=== PATIENT | female | born 2000 | race African-American/Black ===

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

== ENCOUNTER 2018-07-17 21:18 | Emergency (ER) | payer MEDICAID ==
[~2018-07-17] VITALS: Ht 165.1 cm; Wt 54.5 kg
[2018-07-17 21:23] VITALS: Ht 165.1 cm; Wt 54.5 kg
[2018-07-17] MEDS ORDERED: PROCARDIA10 MG (21:25)
[2018-07-17] MEDS ORDERED: LISINOPRIL2.5 MG (21:25)
[2018-07-17] MEDS ORDERED: MIDAMOR5 MG (21:25)
[2018-07-17 21:52] LABS: BASOPHILS 0.4 % (0-2); EOSINOPHILS 4.5 % (0-7); HEMATOCRIT 35.4 % (36.0-48.0); HEMOGLOBIN 12.2 g/dL (12-16); IMMATURE GRANULOCYTES 0.1 % (0-5); LYMPHOCYTES 38.4 % (15-50); MCH 30.7 pg (26.0-34.0); MCHC 34.5 g/dL (31.0-37.0); MCV 89.2 fL (80.0-100.0); MEAN PLATELET VOLUME 8.4 fL (7.4-10.4); MONOCYTES 9.1 % (2-11); NEUTROPHILS 47.5 % (40-80); PLATELET COUNT 339 10x3/uL (130-400); RBC 3.97 10x6/uL (4.00-5.40); RDW 13.2 % (11.5-14.5); WBC 7.2 10x3/uL (4.8-10.8)
[2018-07-17 22:02] LABS: APTT 36.5 SECONDS (22.8-39.4); INR 0.99 (0.85-1.17); PROTIME 12.6 SECONDS (11.6-15.0)
[2018-07-17 22:18] LABS: ALBUMIN 3.6 g/dL (3.4-5.0); ALKALINE PHOSPHATASE 85 U/L (46-116); ALT (SGPT) 27 U/L (10-68); BILIRUBIN - TOTAL 0.26 mg/dL (0.2-1.3); CALC OSMOLALITY 288 mosm/kg (275-300); CALCIUM 8.7 mg/dL (8.5-10.1); CARBON DIOXIDE 28.8 mmol/L (21.0-32.0); CHLORIDE - SERUM 106 mmol/L (98-107); CKMB 0.1 U/L (0.0-3.6); CREATINE KINASE 64 UL (21-215); CREATININE - SERUM 0.7 mg/dL (0.6-1.3); GLUCOSE 113 mg/dL (74-106); MAGNESIUM - SERUM 1.7 mg/dL (1.8-2.4); PROTEIN - SERUM 7.5 g/dL (6.4-8.2); SODIUM 145 mmol/L (136-145); UREA NITROGEN 9 mg/dL (7-18); eGFR NON AFRICAN AMERICAN > 90 mL/min (90-120)
[2018-07-17 22:22] LABS: POTASSIUM - SERUM 2.7 mmol/L (3.5-5.1); TROPONIN-I < 0.017 ng/mL (0.000-0.060)
[2018-07-17 22:35] LABS: AMYLASE - SERUM 89 U/L (25-115); LIPASE 261 U/L (73-393)
[2018-07-17 22:46] LABS: HCG SERUM NEGATIVE (NEGATIVE)
[2018-07-18 01:21] LABS: POTASSIUM - SERUM 3.3 mmol/L (3.5-5.1); TROPONIN-I < 0.017 ng/mL (0.000-0.060)
[2018-07-18] MEDS ORDERED: MIRALAX17 GM PO (01:42)
[2018-07-18] MEDS ORDERED: MILK OF MAGNESI30 ML PO (01:42)
[2018-07-18 02:20] VITALS: BP 134/62
== END 2018-07-18 02:20 | disposition home or self-care (01) ==
LOC: D.ER 21:18
PROVIDERS: Family Medicine
DX: K59.00 Constipation, unspecified (principal); E87.6 Hypokalemia; E83.42 Hypomagnesemia